=== PATIENT | male | born 1965 | race Caucasian/White ===

== ENCOUNTER 2016-09-04 18:28 | Emergency (ER) | payer OTHER ==
--- NOTE | 2016-09-04 19:02 | EDPHY ---
H & P Smoking Status: Never smoked Time Seen by Provider: 09/04/16 18:49 HPI/ROS: CHIEF COMPLAINT: Abdominal pain HISTORY OF PRESENT ILLNESS: This patient is a 50-year-old male who was referred to the Emergency Department by his primary care provider for complaint of persistent right lower quadrant abdominal pain beginning three days prior to arrival. He reports nausea and intermittent diarrhea over the past two weeks. He continues to complain of nausea at time of arrival but has been able to keep food down yesterday and this morning. He denies subjective fever or chills. He denies history of abdominal surgery. He does have a history of kidney stones but describes today's pain as different in quality and severity. REVIEW OF SYSTEMS: Constitutional: No fever, no chills Eyes: No visual changes ENT: No sore throat Respiratory: No cough, no shortness of breath Cardiac: No chest pain Gastrointestinal: As in HPI Genitourinary: No hematuria, no dysuria Musculoskeletal: No leg pain or swelling Skin: No rash Neurological: No headache, no numbness, no weakness Psychiatric: No depression (Margi Small) Past Medical/Surgical History: Kidney stone (Margi Small) Social History: Non-smoker (Margi Small) Physical Exam: General Appearance: Alert, no distress Eyes: Pupils equal and round, no conjunctival pallor or injection ENT, Mouth: Mucous membranes moist Neck: Normal inspection Respiratory: Lungs are clear to auscultation Cardiovascular: Regular rate and rhythm Gastrointestinal: Abdomen is soft with RLQ tenderness Neurological: A&O, nonfocal, normal gait Skin: Warm and dry, no rash Extremities: Nontender, no pedal edema Psychiatric: Mood and affect normal (Margi Small) Constitutional: Initial Vital Signs Temperature (C) 36.7 C 09/04/16 18:46 Heart Rate 76 09/04/16 18:46 Respiratory Rate 18 09/04/16 18:46 Blood Pressure 164/114 H 09/04/16 18:46 O2 Sat (%) 94 09/04/16 18:46 O2 Delivery Mode Room Air Allergies/Adverse Reactions: aspirin Allergy (Verified 09/04/16 18:45) azithromycin Allergy (Verified 09/04/16 18:45) Penicillins Allergy (Verified 09/04/16 18:45) Home Medications: Medication Instructions Recorded NK [No Known Home Meds] 09/04/16 Medical Decision Making - Diagnostics Imaging Results: Imaging Impressions Abdomen CT 09/04/16 19:09 Impression: 1. Features consistent with a gastroenteritis. 2. Normal CT appearance of the appendix. 3. Mild prostatomegaly and mild splenomegaly. 4. Hepatic steatosis. Findings were discussed with Mike Jones MD at 21:25, on 09/04/2016. ED Course/Re-evaluation: 50-year-old male referred to the ED by his PCP for appendicitis rule-out. He has had ongoing nausea with occasional diarrhea over the past two weeks but began to experience acute onset persistent RLQ abdominal pain three days prior to arrival. On exam, he has RLQ tenderness. No other significant findings. Will proceed with i-Stat and CT of the abdomen. i-Stat results are normal. UA reviewed and is negative. No evidence of kidney stone or UTI. Labs reviewed. WBC is normal at 7.16. Chemistries are within normal ranges. (Margi Small) CT is negative. I discussed these results with the patient. He tells me he's had green diarrhea for a few weeks, but is unable to provide a sample here. Patient will be discharged home with diagnosis of gastroenteritis and strict instructions to return a stool sample and recommended follow up with his PCP. Return precautions given. He is comfortable with this plan. (Mike Jones) Differential Diagnosis: The differential diagnosis for the patient's abdominal pain included but was not limited to appendicitis, cholecystitis, hernias, testicular torsion, gastritis, and urinary tract infection. (Margi Small) - Data Points Laboratory Results: Laboratory Results 09/04/16 19:39 09/04/16 19:39 09/04/16 09/04/16 09/04/16 19:39 19:39 19:35 WBC 7.16 10^3/uL 10^3/uL (3.80-9.50) RBC 5.40 10^6/uL 10^6/uL (4.40-6.38) Hgb 15.8 g/dL g/dL (13.7-17.5) POC Hgb Hct 46.6 % % (40.0-51.0) POC Hct MCV 86.3 fL fL (81.5-99.8) MCH 29.3 pg pg (27.9-34.1) MCHC 33.9 g/dL g/dL (32.4-36.7) RDW 13.7 % % (11.5-15.2) Plt Count 237 10^3/uL 10^3/uL (150-400) MPV 9.4 fL fL (8.7-11.7) Neut % (Auto) 68.7 % % (39.3-74.2) Lymph % (Auto) 17.6 % % (15.0-45.0) Clare % (Auto) 11.7 % % (4.5-13.0) Eos % (Auto) 1.3 % % (0.6-7.6) Baso % (Auto) 0.4 % % (0.3-1.7) Nucleat RBC Rel Count 0.0 % % (0.0-0.2) Absolute Neuts (auto) 4.92 10^3/uL 10^3/uL (1.70-6.50) Absolute Lymphs (auto) 1.26 10^3/uL 10^3/uL (1.00-3.00) Absolute Monos (auto) 0.84 10^3/uL H 10^3/uL (0.30-0.80) Absolute Eos (auto) 0.09 10^3/uL 10^3/uL (0.03-0.40) Absolute Basos (auto) 0.03 10^3/uL 10^3/uL (0.02-0.10) Absolute Nucleated RBC 0.00 10^3/uL 10^3/uL (0-0.01) Immature Gran % 0.3 % % (0.0-1.1) Immature Gran # 0.02 10^3/uL 10^3/uL (0.00-0.10) POC Sodium Sodium 140 mEq/L mEq/L (134-144) POC Potassium Potassium 4.0 mEq/L mEq/L (3.5-5.2) POC Chloride Chloride 104 mEq/L mEq/L (97-110) Carbon Dioxide 23 mEq/l mEq/l (22-31) Anion Gap 13 mEq/L mEq/L (8-16) POC BUN BUN 16 mg/dL mg/dL (7-23) Creatinine 0.9 mg/dL mg/dL (0.7-1.3) POC Creatinine Estimated GFR > 60 Glucose 87 mg/dL mg/dL (70-100) POC Glucose Calcium 9.8 mg/dL mg/dL (8.5-10.4) Urine Color YELLOW Urine Appearance HAZY Urine pH 5.0 (5.0-7.5) Ur Specific [place] 1.031 H (1.002-1.030) Urine Protein NEGATIVE (NEGATIVE) Urine Ketones 2+ H (NEGATIVE) Urine Blood NEGATIVE (NEGATIVE) Urine Nitrate NEGATIVE (NEGATIVE) Urine Bilirubin NEGATIVE (NEGATIVE) Urine Urobilinogen NEGATIVE EU EU (0.2-1.0) Ur Leukocyte Esterase NEGATIVE (NEGATIVE) Urine Glucose NEGATIVE (NEGATIVE) 09/04/16 19:18 WBC RBC Hgb POC Hgb 16.3 gm/dL gm/dL (13.7-17.5) Hct POC Hct 48 % % (40-51) MCV MCH MCHC RDW Plt Count MPV Neut % (Auto) Lymph % (Auto) Clare % (Auto) Eos % (Auto) Baso % (Auto) Nucleat RBC Rel Count Absolute Neuts (auto) Absolute Lymphs (auto) Absolute Monos (auto) Absolute Eos (auto) Absolute Basos (auto) Absolute Nucleated RBC Immature Gran % Immature Gran # POC Sodium 144 mEq/L mEq/L (134-144) Sodium POC Potassium 3.7 mEq/L mEq/L (3.3-5.0) Potassium POC Chloride 104 mEq/L mEq/L (97-110) Chloride Carbon Dioxide Anion Gap POC BUN 14 mg/dL mg/dL (7-23) BUN Creatinine POC Creatinine 1.0 mg/dL mg/dL (0.7-1.3) Estimated GFR Glucose POC Glucose 95 mg/dL mg/dL (70-100) Calcium Urine Color Urine Appearance Urine pH Ur Specific [place] Urine Protein Urine Ketones Urine Blood Urine Nitrate Urine Bilirubin Urine Urobilinogen Ur Leukocyte Esterase Urine Glucose Point of Care Test Results: 09/04/16 19:18 POC Sodium 144 POC Potassium 3.7 POC Chloride 104 POC BUN 14 POC Creatinine 1.0 POC Glucose 95 Departure - Departure Disposition: Home, Routine, Self-Care Clinical Impression: Gastroenteritis Condition: Good Instructions: Gastroenteritis (ED) Additional Instructions: Increase fluid intake. Return stool sample as directed. Follow up with your primary care provider for unimproved symptoms over the next few days. Return to the ED for worsening of condition. Referrals: AKASH DONOVAN [Other] - As per Instructions Report Scribed for: Margi Small Report Scribed by: Lissette Renner Date of Report: 09/04/16 Time of Report: 19:01 Physician Review and Approval Statement: 09/04/16 19:01 Portions of this note were transcribed by a medical technologist. I personally performed a history, physical exam, medical decision making, and confirmed accuracy of information the transcribed note. (Margi Small)
[2016-09-04 19:50] LABS: COLOR YELLOW; LEUKOCYTE ESTERASE,URINE NEGATIVE (NEGATIVE); NITRITE,URINE NEGATIVE (NEGATIVE)
[2016-09-04 20:32] LABS: % IMMATURE GRANULYOCYTES 0.3 % (0.0-1.1); ABSOLUTE IMMATURE GRANULOCYTES 0.02 10^3/uL (0.00-0.10); ADD DIFF? NO; ADD MORPH? NO; ADD SCAN? NO; ATYPICAL LYMPHOCYTE FLAG 0 (0-99); FRAGMENT RBC FLAG 0 (0-99); HEMATOCRIT 46.6 % (40.0-51.0); HEMOGLOBIN 15.8 g/dL (13.7-17.5); LEFT SHIFT FLG 0 (0-99); LIPEMIA HEMOLYSIS FLAG 90 (0-99); MEAN CELL HEMOGLOBIN 29.3 pg (27.9-34.1); MEAN CELL HEMOGLOBIN CONCENTR. 33.9 g/dL (32.4-36.7); MEAN CELL VOLUME 86.3 fL (81.5-99.8); MEAN PLATELET VOLUME 9.4 fL (8.7-11.7); PLATELET CLUMPS FLAG 0 (0-99); PLATELET COUNT 237 10^3/uL (150-400); RED CELL DISTRIBUTION WIDTH 13.7 % (11.5-15.2)
[2016-09-04 20:40] LABS: ANION GAP 13 mEq/L (8-16); CALCIUM 9.8 mg/dL (8.5-10.4); CARBON DIOXIDE 23 mEq/l (22-31); CHLORIDE 104 mEq/L (97-110); CREATININE 0.9 mg/dL (0.7-1.3); GLOMERULAR FILTRATION RATE > 60; GLUCOSE 87 mg/dL (70-100); SODIUM 140 mEq/L (134-144)
[2016-09-04 20:58] VITALS: TEMP 98.4
[2016-09-04 21:46] VITALS: BP 141/84; PULSE 80; RESP 16; O2SAT 94
== END 2016-09-04 21:45 | disposition home or self-care (01) ==
DX: K52.9 Noninfective gastroenteritis and colitis, unspecified (principal)
CPT/HCPCS: 82947-QW

== ENCOUNTER → 2016-09-04 | Outpatient (CLI) | payer OTHER ==
[~2016-09-04] MED LIST: IOPAMIDOL (ISOVUE-300) 100 ML BTL ONE
== END ==
LOC: FIMAGING 16:56
PROVIDERS: ATTEND Registered Nurse
DX: R10.13 Epigastric pain (principal)
CPT/HCPCS: Q9967